=== PATIENT | female | born 1960 | race Caucasian/White ===

== ENCOUNTER 2024-08-02 07:35 | Emergency (ER) | payer OTHER ==
[~2024-08-02] VITALS: Ht 170.2 cm; Wt 80.0 kg
[2024-08-02] MEDS ORDERED: OTEZLA30 MG PO (07:49)
[2024-08-02 09:06] VITALS: BP 102/72
== END 2024-08-02 09:06 | disposition home or self-care (01) ==
LOC: ED 07:35
DX: S63.602A Unspecified sprain of left thumb, initial encounter (principal); S63.601A Unspecified sprain of right thumb, initial encounter; W18.30XA Fall on same level, unspecified, initial encounter
CPT/HCPCS: 73130; 99283